=== PATIENT | female | born 1985 | race Native Hawaiian/Other Pacific Islander ===

== ENCOUNTER → 2023-10-22 | Outpatient (CLI) | payer OTHER, SELFPAY ==
--- NOTE | 2023-10-22 09:11 | DI.US.S_ITS ---
PROCEDURE: US OB <= 14 WEEKS FETUS INDICATIONS: DATING / VIABILITY OUTSIDE/PRIOR DATING DATA: Last menstrual period (LMP): 09/10/23. LMP-based estimated date of delivery (LANI): 06/16/24. First dating scan (date and location): 10/22/23. Estimated date of delivery (LANI) from first dating scan: 06/19/24 based on mean gestational sac diameter. TECHNIQUE: Real-time scanning was performed of the fetus and maternal pelvic organs, with image documentation. Endovaginal scanning was also performed to better visualize the fetus and maternal ovaries. COMPARISON: None. FINDINGS: Anteverted uterus has a thickened fundal endometrium containing a small gestational sac with an average sac diameter of 8.2 mm. This corresponds to a gestational age of five weeks four days +/-12 days. A normal appearing yolk sac is identified. No pole is seen. There is no perigestational hemorrhage. The cervix appears closed. The ovaries are seen and there is central corpus luteum in the left ovary. No suspicious adnexal masses or free fluid. IMPRESSION: Intrauterine products of conception with mean gestational sac diameter suggesting a gestational age of five weeks, four days, +/-12 days. This is most suggestive of an early and follow-up imaging to determine viability in 1-2 weeks is recommended. Closed cervix and no visible perigestational hemorrhage. We strive to produce accurate, complete, and clear reports of imaging services. To assist us in improving patient care, this report was composed using standard report templates and voice recognition software. Therefore, it may contain abnormal punctuation, insertions and/or omissions. Occasional wrong-word or sound-alike substitutions may occur. Though we review the report and make efforts to correct it, we do recommend that the report be read carefully in proper context to recognize any text inaccuracies. Dictated by: Kae Tamez M.D. on 10/22/2023 at 18:29 Approved by: Kae Tamez M.D. on 10/22/2023 at 18:33
== END ==
PROVIDERS: Referring Provider Family Medicine; Visit Provider Family Medicine
DX: Z36.87 Encounter for antenatal screening for uncertain dates (principal)
CPT/HCPCS: 76801

== ENCOUNTER → 2023-10-25 13:59 | Outpatient (CLI) | payer OTHER, SELFPAY ==
[2023-10-25 16:11] LABS: HCG Quantitative /Beta subunit 2819.3 mIU/mL
== END ==
PROVIDERS: Referring Provider Family Medicine; Visit Provider Family Medicine
DX: O09.01 Supervision of pregnancy with history of infertility, first trimester (principal); N91.1 Secondary amenorrhea; Z3A.01 Less than 8 weeks gestation of pregnancy
CPT/HCPCS: 36415; 84702